=== PATIENT | female | born 1990 | race African-American/Black ===

== ENCOUNTER 2025-07-24 10:23 | Emergency (ER) | payer BC, OTHER, SELFPAY ==
[2025-07-24 11:38] LABS: Glucose, Urine (Dipstick) Normal (Negative); Leukocyte 25 (Negative); Protein, Urine (Dipstick) 30 mg/dl (Neg-Trace); Specific Gravity, Urine 1.025 (1.005-1.030)
[2025-07-24 11:40] LABS: Pregnancy Test - Urine (BHCG) Negative (Negative); Pregu Control Bar Appear? YES (CONTROL BAR)
[2025-07-24 11:41] LABS: Pregu Control Background? CLEAR/WHITE (CLR/WHITE)
[2025-07-24 11:49] LABS: Bacteria/HPF 1+ HPF (None Seen); CAUTI Indications for Culture Pelvic or flank pain; Mucous/LPF 1+ LPF (<2+); WBC/HPF 0-3 HPF (0-3)
[2025-07-24 11:50] LABS: Urine Culture Reflex No No
[2025-07-25 06:05] LABS: Chlamydia by PCR, Vaginal Swab Not Detected (NotDetected); GC by PCR, Vaginal Swab Not Detected (NotDetected)
== END 2025-07-24 15:16 | disposition home or self-care (01) ==
LOC: CSHERS 10:23
DX: N76.0 Acute vaginitis (principal); B96.89 Other specified bacterial agents as the cause of diseases classified elsewhere; N93.9 Abnormal uterine and vaginal bleeding, unspecified; F17.210 Nicotine dependence, cigarettes, uncomplicated
CPT/HCPCS: 76856; 81001; 81025; 87480; 87491; 87510; 87591; 87660